=== PATIENT | female | born 1965 | race Caucasian/White ===

== ENCOUNTER 2021-06-06 08:14 | Outpatient (CLI) | payer BC, SELFPAY | END 2021-06-06 08:15 | disposition home or self-care (01) | LOC: ANHAUDIO 08:17 | PROVIDERS: PCP Family Medicine; Visit Provider Nurse Practitioner Family | DX: H90.3 Sensorineural hearing loss, bilateral (principal) | CPT/HCPCS: 92537; 92540; 92546; 92557; 92567 ==

== ENCOUNTER 2023-05-18 17:29 | Outpatient (NON) | payer BC, SELFPAY ==
[2023-05-18 20:27] LABS: Color Synovial Fluid Yellow (Colorless); Source Synovial Fluid Synovial fluid
[2023-05-18 20:28] LABS: Appearance Synovial Fluid Cloudy (Clear)
[2023-05-18 20:29] LABS: Lymphocytes Synovial Fluid 5 %; Monocytes Synovial Fluid 1 %; Neutrophils Synovial Fluid 94 % (0-25)
[2023-05-18 20:33] LABS: Crystals Synovial Fluid None Seen (None Seen)
[2023-05-20 11:48] LABS: Nucleated Cell Synovial Fluid 13460 /uL (0-200); RBC Synovial Fluid 10000 /uL (0-0)
== END 2023-05-18 17:30 | disposition home or self-care (01) ==
PROVIDERS: PCP Family Medicine; Visit Provider Orthopaedic Surgery
DX: M25.561 Pain in right knee (principal); Z96.651 Presence of right artificial knee joint
CPT/HCPCS: 87070; 87075; 87147; 87181; 87186; 87205; 89051; 89060

== ENCOUNTER 2023-05-19 16:33 | Outpatient (NON) | payer BC, SELFPAY ==
[2023-05-19 18:14] LABS: Appearance Synovial Fluid Bloody (Clear); Color Synovial Fluid Red (Colorless); Lymphocytes Synovial Fluid 2 %; Monocytes Synovial Fluid 2 %; Neutrophils Synovial Fluid 96 % (0-25); Source Synovial Fluid Synovial fluid
[2023-05-19 18:15] LABS: Crystals Synovial Fluid None Seen (None Seen)
[2023-05-20 11:50] LABS: Nucleated Cell Synovial Fluid 26838 /uL (0-200)
[2023-05-20 11:51] LABS: RBC Synovial Fluid 90000 /uL (0-0)
== END 2023-05-19 16:34 | disposition home or self-care (01) ==
PROVIDERS: PCP Family Medicine; Visit Provider Physician Assistant Surgical
DX: Z96.651 Presence of right artificial knee joint (principal)
CPT/HCPCS: 87070; 87075; 87147; 87181; 87186; 87205; 89051; 89060